=== PATIENT | male | born 1965 | race Caucasian/White ===

== ENCOUNTER 2021-04-16 10:06 | Emergency (ER) | payer OTHER ==
[~2021-04-16] VITALS: Ht 177.8 cm; Wt 105.2 kg
[2021-04-16] MEDS ORDERED: COZAAR 50 MG TA50 M1 PO (10:20)
[2021-04-16] MEDS ORDERED: CIALIS5 MG PO (10:20)
[2021-04-16 12:30] VITALS: BP 134/82
--- NOTE | 2021-04-17 10:37 | EKG ---
[place] [address] ELECTROCARDIOGRAM REPORT Name: ROXYMARIANELA CORBIN Room: [facility]#: [id number] Admission: 04/16/21 Attend Phys: Discharge: 04/16/21 Date of : 61 Date of Service: 04/16/21 1016 Report #: [id number] THIS REPORT FOR: //name// [facility] ED Test Date: 2021-04-16 Test Time: 10:16:45 Pat Name: MARIANELA RAMSEY Department: Room: Gender: Case Briefer: [facility] : 1965 Requested By: Justin Stanley Order Number: [id number] MD: Vic Morales Measurements Intervals [place] Rate: 61 P: 16 NM: 154 QRS: -19 QRSD: 83 T: 6 QT: 406 QTc: 409 Interpretive Statements Sinus rhythm Abnormal R-wave progression, late transition Inferior infarct, old No previous ECG available for comparison Electronically Signed On 04-17-2021 10:37:23 DISPENSING AUDIOLOGIST by Vic Morales [email or web address] <ELECTRONICALLY SIGNED> By: Vic Morales MD, [facility] 04/17/21 1037 1016 1016 Vic Morales MD, [facility] /EPI
== END 2021-04-16 12:30 | disposition home or self-care (01) ==
LOC: M.ERS 10:06
DX: U07.1 COVID-19 (principal); I10 Essential (primary) hypertension; Z98.890 Other specified postprocedural states; Z79.899 Other long term (current) drug therapy